=== PATIENT | male | born 1990 | race Hispanic/Latino ===

== ENCOUNTER 2021-06-30 11:07 | Emergency (ER) | payer OTHER ==
[~2021-06-30] VITALS: Ht 188 cm; Wt 95.5 kg
[2021-06-30 11:39] LABS: BASO # 0.1 10^3/uL (0.0-0.2); BASO % 0.7 % (0.0-1.0); EOS # 0.3 10^3/uL (0.0-0.5); EOS % 3.4 % (0.0-3.0); HEMATOCRIT 44.4 % (42.0-52.0); HEMOGLOBIN 15.3 g/dl (13.5-17.5); LYMPH % 26.8 % (24.0-44.0); MEAN CORPUSCULAR HEMOGLOBIN 30.9 pg (27.0-33.0); MEAN CORPUSCULAR HGB CONC 34.5 g/dl (32.0-36.5); MEAN CORPUSCULAR VOLUME 89.7 fl (80.0-96.0); MONO # 0.8 10^3/uL (0.0-0.8); NEUTROPHILS # 4.3 10^3/uL (1.5-8.5); NEUTROPHILS % 57.2 % (36.0-66.0); PLATELET COUNT, AUTOMATED 218 10^3/uL (150-450); RED BLOOD COUNT 4.95 10^6/uL (4.30-6.10); WHITE BLOOD COUNT 7.4 10^3/uL (4.0-10.0)
--- NOTE | 2021-06-30 11:55 | REP ---
INDICATION: CHEST PAIN COMPARISON: None. TECHNIQUE: Portable AP view of the chest FINDINGS: Mediastinum and cardiac silhouette are within normal limits. Diffuse lower lobe airspace disease (right greater than left) suggested. No discrete focal consolidation. No effusion. No pneumothorax. IMPRESSION: Bibasilar airspace disease. Follow-up to resolution recommended. <Electronically signed by Oliver Craft > 06/30/21 [id number]
[2021-06-30 12:02] LABS: ALBUMIN 4.1 GM/DL (3.2-5.2); ALT/SGPT 79 U/L (12-78); BILIRUBIN,DIRECT 0.2 MG/DL (0.0-0.2); BILIRUBIN,TOTAL 0.8 MG/DL (0.2-1.0); BLOOD UREA NITROGEN 21 MG/DL (7-18); CALCIUM LEVEL 9.3 MG/DL (8.5-10.1); CARBON DIOXIDE LEVEL 30 MEQ/L (21-32); CHLORIDE LEVEL 102 MEQ/L (98-107); CREATININE FOR GFR 1.06 MG/DL (0.70-1.30); GLOMERULAR FILTRATION RATE > 60.0 (>60); GLUCOSE, FASTING 82 MG/DL (70-100); LIPASE 140 U/L (73-393); POTASSIUM SERUM 4.1 MEQ/L (3.5-5.1); SODIUM LEVEL 138 MEQ/L (136-145); TOTAL PROTEIN 7.7 GM/DL (6.4-8.2)
[2021-06-30 12:22] LABS: CK-MB VALUE MASS 11.1 NG/ML (<3.6); CPK CREATINE PHOSPHOKINASE 1314 U/L (39-308); MB/CK RELATIVE INDEX 0.84 (< OR =4); TROPONIN I < 0.02 NG/ML (< 0.10)
[2021-06-30] MEDS ORDERED: NS 1,000 ML IV ONE (12:35)
[2021-06-30] MEDS ORDERED: KETOROLAC 30 MG/ML 1ML VIAL IV ONE (12:45)
--- NOTE | 2021-06-30 13:35 | REP ---
INDICATION: elevated enzymes, nausea COMPARISON: None. TECHNIQUE: Real time wright scale ultrasound examination using curved array transducer. FINDINGS: Liver is normal in contour, size, and echogenicity without focal hepatic lesions identified. Pancreas is incompletely evaluated due to interposed bowel gas. The gallbladder is normal and without gallstones, wall thickening, or pericholecystic fluid. No biliary ductal dilatation is appreciated and the common bile duct measures 2.8 mm diameter. Right kidney is normal in reniform shape without hydronephrosis and measures 10.6 x 6.0 x 4.0 cm. No ascites in the visualized right upper quadrant. IMPRESSION: Normal limited right upper quadrant ultrasound <Electronically signed by Oliver Craft > 06/30/21 [id number]
[2021-06-30 15:28] LABS: CK-MB VALUE MASS 8.8 NG/ML (<3.6); CPK CREATINE PHOSPHOKINASE 998 U/L (39-308); MB/CK RELATIVE INDEX 0.88 (< OR =4); TROPONIN I < 0.02 NG/ML (< 0.10)
[2021-06-30 15:53] VITALS: BP 109/69
--- NOTE | 2021-07-02 15:08 | ED PDOC ---
Post-Departure Follow-Up radiology report faxed to [facility] Brigitte Franks MD Jul 02, 2021 15:08
--- NOTE | 2021-07-03 07:33 | ECGEPIP ---
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
== END 2021-06-30 16:15 | disposition home or self-care (01) ==
LOC: M ED 11:07 → EDBD 11:07 → M ED 16:15
DX: M62.82 Rhabdomyolysis (principal); K21.9 Gastro-esophageal reflux disease without esophagitis; J30.2 Other seasonal allergic rhinitis
CPT/HCPCS: 71045; 76705; 80048; 80076; 82550; 82553; 83690; 84484; 85025; 93005; 96361; 96374; 99284; J1885

== ENCOUNTER 2021-08-24 12:49 | Emergency (ER) | payer OTHER ==
[~2021-08-24] VITALS: Ht 188 cm; Wt 98.1 kg
[2021-08-24 12:50] VITALS: BP 126/88
[2021-08-24] MEDS ORDERED: ALBUTEROL 90 MCG/ACT 8GM HFA INHALER INH ONE (15:05)
[2021-08-24 16:15] LABS: BASO # 0.1 10^3/uL (0.0-0.2); BASO % 0.6 % (0.0-1.0); EOS # 0.2 10^3/uL (0.0-0.5); EOS % 2.7 % (0.0-3.0); HEMATOCRIT 46.5 % (42.0-52.0); HEMOGLOBIN 16.1 g/dl (13.5-17.5); LYMPH # 2.7 10^3/uL (1.5-5.0); LYMPH % 30.8 % (24.0-44.0); MEAN CORPUSCULAR HEMOGLOBIN 30.6 pg (27.0-33.0); MEAN CORPUSCULAR HGB CONC 34.6 g/dl (32.0-36.5); MEAN CORPUSCULAR VOLUME 88.2 fl (80.0-96.0); MONO # 0.8 10^3/uL (0.0-0.8); MONO % 9.1 % (2.0-8.0); NEUTROPHILS % 56.2 % (36.0-66.0); PLATELET COUNT, AUTOMATED 291 10^3/uL (150-450); RED BLOOD COUNT 5.27 10^6/uL (4.30-6.10); WHITE BLOOD COUNT 8.8 10^3/uL (4.0-10.0)
[2021-08-24 17:10] LABS: BLOOD UREA NITROGEN 15 MG/DL (7-18); CREATININE FOR GFR 0.97 MG/DL (0.70-1.30); GLOMERULAR FILTRATION RATE > 60.0 (>60); GLUCOSE, FASTING 132 MG/DL (70-100); POTASSIUM SERUM 4.1 MEQ/L (3.5-5.1); SODIUM LEVEL 141 MEQ/L (136-145)
[2021-08-24 17:11] LABS: ALT/SGPT 63 IU/L (0-32); CALCIUM LEVEL 9.6 MG/DL (8.5-10.1); CARBON DIOXIDE LEVEL 29 mmol/L (20-29); CHLORIDE LEVEL 106 MEQ/L (98-107)
[2021-08-24 17:12] LABS: ALBUMIN 3.9 GM/DL (3.2-5.2); BILIRUBIN,TOTAL 0.4 MG/DL (0.2-1.0); TOTAL PROTEIN 7.9 GM/DL (6.4-8.2)
[2021-08-24] MEDS ORDERED: VENTAER INH (17:52)
== END 2021-08-24 18:45 | disposition home or self-care (01) ==
LOC: M ED 12:49
DX: U07.1 COVID-19 (principal)